=== PATIENT | male | born 1955 | race Two or more races ===

== ENCOUNTER 2024-08-03 02:42 | Inpatient (IN) | payer OTHER ==
[~2024-08-03] VITALS: Ht 182.9 cm; Wt 127.3 kg
[2024-08-03] VITALS (13 sets, daily range): BP systolic 132–149; BP diastolic 69–78; PULSE 60–104; RESP 17–23; TEMP 97.6–98.4; O2SAT 89–97
[2024-08-03] MEDS: IPRATROPIUM BROM 0.5 MG/2.5ML INH SOL NEB ONE ×2 (03:33→07:44)
[2024-08-03] MEDS: ALBUTEROL SULF 2.5 MG/0.5ML(0.5%) NEB SOLN NEB ONE ×2 (03:33→07:44)
--- NOTE | 2024-08-03 04:41 | DVH ---
CHEST RADIOGRAPH Indication: SOB Technique: Frontal and lateral view of the chest was obtained Comparison: None IMPRESSION: 1. Prominent cardiomediastinal silhouette. No focal airspace opacity, effusion, or pneumothorax.
[2024-08-03] MEDS: methylPREDNISolone SOD SUCC 125 MG/2 ML VL IM ONE (05:14)
[2024-08-03] MEDS: DexAMETHasone SOD PHOS 10MG/1ML VIAL INJ IM ONE (05:31)
--- NOTE | 2024-08-03 05:50 | ED.PDOC ---
History of Present Illness HPI Comments 68 y/o M, with a Hx of asthma, HTN, and obesity, presents with c/o shortness of breath and nonproductive cough for the past, today. Patient endorses on onset of excessive coughing bouts for the past week, with additional onset of progressively worsening difficulty breathing within the past 3x days. Patient c omments on no relief or improvement with asthma in haler use. He informs on no additional relevant or relevant Hx along with any recent sick contact, travel, injuries, or substance use/exposure. Patient denies having any chest pain, dyspnea, nausea, vomiting, fever, chills, or other associated symptoms or modifiers at this time. Chief Complaint: Asthma Time Seen by MD: 05:25 Reviewed Notes: Nurses Notes, Medications, Allergies Allergies: Coded Allergies: No Known Drug Allergy (Verified Allergy, Unknown, 08/03/24) Information Source: Patient Mode of Arrival: Ambulatory Severity: Moderate Timing: Days Duration: Since onset Prehospital treatment: Breathing Tx Past Medical History PAST MEDICAL HISTORY: Asthma, HTN Past Medical History (Other): obesity Surgical History: Denies all surgeries Family History Family History: Unknown Social History Smoker: Non-Smoker Alcohol: Denies ETOH Use Drugs: Denies Drug Use Lives In: Home Constitutional: denies: chills, diaphoresis, fatigue, fever, malaise, sweats, weakness, others EENTM: denies: blurred vision, double vision, ear bleeding, ear discharge, ear drainage, ear pain, ear ringing, eye pain, eye redness, hearing loss, mouth pain, mouth swelling, nasal discharge, nose bleeding, nose congestion, nose pain, photophobia, tearing, throat pain, throat swelling, voice changes, others Respiratory: reports: cough, shortness of breath; denies: hemoptysis, orthopnea, SOB at rest, SOB with excertion, stridor, wheezing, others Cardiovascular: denies: chest pain, dizzy spells, diaphoresis, Dyspnea on exertion, edema, irregular heart beat, left arm pain, lightheadedness, palpitations, PND, syncope, others Gastrointestinal: denies: abdomen distended, abdominal pain, blood streaked bowels, constipated, diarrhea, dysphagia, difficulty swallowing, hematemesis, melena, nausea, poor appetite, poor fluid intake, rectal bleeding, rectal pain, vomiting, others Genitourinary: denies: burning, dysuria, flank pain, frequency, hematuria, incontinence, penile discharge, penile sore, pain, testicle pain, testicle swelling, urgency, others Neurological: denies: dizziness, fainting, headache, left sided numbness, left sided weakness, numbness, paresthesia, pre-existing deficit, right sided numbness, right sided weakness, seizure, speech problems, tingling, tremors, weakness, others Musculoskeletal: denies: back pain, gout, joint pain, joint swelling, muscle pa in, muscle stiffness, neck pain, others Integumetry: denies: bruises, change in color, change in hair/nails, dryness, laceration, lesions, lumps, rash, wounds, others Allergic/Immunocompromised: denies: Difficulty Healing, Frequent Infections, Hives, Itching, others Hematologic/Lymphatic: denies: anemia, blood clots, easy bleeding, easy bruising, swollen glands, others Endocrine: denies: excessive hunger, excessive sweating, excessive thirst, excessive urination, flushing, intolerance to cold, intolerance to heat, unexplained weight gain, unexplained weight loss, others Psychiatric: denies: anxiety, bipolar disorder, depression, hopeless, panic disorder, schizophrenia, sleepless, suicidal, others All Other Systems: Reviewed and Negative Physical Exam General Appearance: No Apparent Distress, Obese HEENT: Normal ENT Inspection, Pharynx Normal, TMs Normal Neck: Full Range of Motion, Non-Tender, Normal, Normal Inspection Respiratory: Chest Non-Tender, Decreased Breath Sounds, No Accessory Muscle Use Cardiovascular: No Edema, No JVD, No Murmur, No Gallop, Normal Peripheral Pulses, Regular Rate/Rhythm Breast Exam: Deferred Gastrointestinal: No Organomegaly, Non Tender, No Pulsatile Mass, Normal Bowel Sounds, Soft Genitalia: Deferred Pelvic: Deferred Rectal: Deferred Extremities: No calf tenderness, Normal capillary refill, Normal inspection, Normal range of motion, Non-tender, No pedal edema Musculoskeletal : Apperance: Normal Neurologic: Alert, area operations director II-XII nml as Tested, No Motor Deficits, Normal Affect, Normal Mood, No Sensory Deficits Cerebellar Function: Normal Reflexes: Normal Skin: Dry, Normal Color, Warm Lymphatic: No Adenopathy Was a procedure done? Was a procedure done?: No Differential Dx Considerations may include: asthma exacerbation, Covid19, bronchitis, PNA, URI, viral syndrome X-Ray, Labs, Meds, VS Vital Signs Date Time Temp Pulse Resp B/P (MAP) Pulse Ox O2 Delivery O2 Flow Rate FiO2 08/03/24 05:30 Room Air* 0 21 08/03/24 04:45 98.7 94 18 127/75 (92) 90 98.7 08/03/24 03:35 18 91 Room Air* 0 21 08/03/24 02:52 20 93 Room Air* 0 21 08/03/24 02:52 99.4 84 20 129/69 (89) 93 Current Medications Medications (Trade) Dose Ordered Sig/Norah Route Start Time Stop Time Status Last Admin Albuterol (Ventolin Medneb) 2.5 mg ONCE ONCE NEB 08/03/24 03:30 08/03/24 03:31 DC 08/03/24 03:33 Ipratropium [place] (Atrovent Medneb) 0.5 mg ONCE ONCE NEB 08/03/24 03:30 08/03/24 03:31 DC 08/03/24 03:33 Methylprednisolone Sodium Succinate (Solu Medrol) 125 mg ONCE ONCE IM 08/03/24 04:30 08/03/24 04:31 DC 08/03/24 05:14 Dexamethasone Sodium Phosphate (Decadron Injection) 8 mg ONCE ONCE IM 08/03/24 05:30 08/03/24 05:31 DC 08/03/24 05:31 [place] [id number] Ph: [phone] DIAGNOSTIC IMAGING Diagnostic Imaging Report : [id number] Signed PATIENT: OLIVIA DENNIS ACCT: [id number] UNIT: [id number] : 1955 LOC: ER ROOM / BED: / AGE / SEX: 68 / M ADM STATUS: REG ER SERVICE [id number] ORDERING PHYSICIAN: NINI NIETO PROCEDURE(s): CXR2 - CHEST TWO VIEWS ROUTINE REASON: SOB ORDER NUMBER(s): [id number], ACCESSION NUMBER(s): [id number] CHEST RADIOGRAPH Indication: SOB Technique: Frontal and lateral view of the chest was obtained Comparison: None IMPRESSION: 1. Prominent cardiomediastinal silhouette. No focal airspace opacity, effusion, or pneumothorax. ATED BY: TONE MCGHEE MD DICTATED DATE/TIME: 08/03/24439 SIGNED BY: TONE MCGHEE MD SIGNED DATE/TIME: 08/03/24439 CC: The patient received Decadron and DuoNeb treatment. He was discharged with a Z-Manoj for asthma and upper respiratory tract infection. Time of 1ST Reevaluation: 05:30 Reevaluation 1ST: Unchanged Patient Education/Counseling: Diagnosis, Treatment Family Education/Counseling: No Family Present Departure 1 Departure Time of Disposition: 05:54 Impression: Primary Impression: Acute asthma Additional Impression: Upper respiratory tract infection Qualified Codes: J06.9 - Acute upper respiratory infection, unspecified Disposition: HOME / SELF CARE / HOMELESS Condition: Other Additional Instructions: Reassessed patient, vital signs stable. Denies any new symptoms. Patient is able to tolerate PO and ambulate/be mobile at their baseline without concern. Risks and benefits of all medications given or prescribed, if any, discussed. All lab work, imaging and diagnostic studies were reviewed by me. The patient was counseled extensively on my clinical impression, diagnosis, expected course of the disease, and plan, including their follow-up care. Will discharge patient. Patient instructed to follow up with Primary Care Physician within 24-48 hours. Strict return precautions given for further exacerbation of symptoms or for new symptoms. The patient was given the opportunity to ask questions and all questio ns were answered by myself and the nursing/tech staff. Patient is in agreement with the care plan. The patient verbally expressed understanding of the discharge instructions, including the reasons to return to the Emergency Department. e-Prescriptions Azithromycin (ZITHROMAX TABLET) 250 Mg Tb 250 MG PO DAILY, #5 TAB Prov: CELSO BRYANT MD 08/03/24 Discharged With: Self Critical Care Note Critical Care Time?: No Stability Stability form required: No Heart Score Heart Score: Heart Score Response (Comments) Value History N/A 0 EKG N/A 0 Age N/A 0 Risk Factors N/A 0 Troponin N/A 0 Total 0 I personally scribed for CELSO BRYANT MD ([email or web address]) on 08/03/24 at 05:50. Electronically submitted by Lonnie Lei ([email or web address]). CELSO BRYANT MD Aug 03, 2024 05:50
[2024-08-03] MEDS ORDERED: AZIT-185 PO (05:56)
[2024-08-03 07:40] LABS: Basophils # (auto) 0 10 ^3/uL (0-0.2); Basophils % (auto) 0.2 % (0.0-2.0); Eosinophils # (auto) 0.1 10 ^3/uL (0-0.8); Eosinophils % (auto) 0.7 % (0.0-7.0); Hematocrit 43.4 % (41.0-53.0); Hemoglobin 14.5 g/dL (13.5-17.5); Lymphocytes # (auto) 0.8 10 ^3/uL (0.4-5.4); Mean Corpuscular Hemoglobin 27.9 pg (28.0-32.0); Mean Corpuscular Hgb Conc. 33.4 g/dL (32.0-36.0); Mean Corpuscular Volume 83.5 fL (80.0-100.0); Monocytes # (auto) 0.5 10 ^3/uL (0-1.3); Monocytes % (auto) 4.8 % (0.0-12.0); Neutrophils # (auto) 9.8 10 ^3/uL (1.6-8.6); Neutrophils % (auto) 87.3 % (37.0-80.0); Platelet Count (auto) 147 10^3/uL (140-450); White Blood Cell 11.2 10^3/uL (4.4-10.8)
[2024-08-03 07:43] LABS: Anion Gap 9 (5-15); Carbon Dioxide 25 mmol/L (20-31); Chloride 105 mmol/L (98-107); Potassium 4.6 mmol/L (3.5-5.1); Sodium 139 mmol/L (136-145)
[2024-08-03 07:44] LABS: Calcium 9.9 mg/dL (8.7-10.4)
[2024-08-03 07:49] LABS: BUN/Creatinine Ratio 15.5 (10.0-20.0)
[2024-08-03 07:57] LABS: Blood Urea Nitrogen 30 mg/dL (9-23); Glucose 129 mg/dL (74-106)
[2024-08-03] MEDS: MAGNESIUM SULFATE 1GM/100ML 100 ML IV ONE (08:16)
[2024-08-03] MEDS ORDERED: MORPHINE SULFATE INJ 2 MG/ml SYRG IV PRN (09:15)
[2024-08-03] MEDS ORDERED: ACETAMINOPHEN 325 MG TAB PO PRN (09:15)
[2024-08-03] MEDS ORDERED: PROMETHAZINE-DM 5 ML ORAL SYRUP PO PRN (09:15)
[2024-08-03] MEDS ORDERED: ONDANSETRON HCL 4 MG/2 ML VIAL IV PRN (09:15)
[2024-08-03] MEDS ORDERED: NITROGLYCERIN 0.4 MG SL TAB SL PRN (09:15)
[2024-08-03 09:32] LABS: COVID19 ANTIGEN SOFIA FIA NEGATIVE (NEGATIVE)
[2024-08-03] MEDS: ENOXAPARIN SOD 40 MG/0.4 ML SYRINGE SC SCH (10:33)
[2024-08-03 10:34] LABS: Rapid Influenza A Negative (Negative); Rapid Influenza B Negative (Negative)
[2024-08-03] MEDS: FAMOTIDINE 20 MG TAB PO SCH (10:34)
[2024-08-03] MEDS: cefTRIAXone 1GM/50ML D5W 50 ML IV ONE (10:34)
[2024-08-03] MEDS: BUDESONIDE (INHALATION) 0.5 MG/2 ML NEB NEB SCH (10:43)
[2024-08-03] MEDS: ALBUTEROL SULF 2.5 MG/0.5ML(0.5%) NEB SOLN NEB SCH (10:43)
[2024-08-03] MEDS: IPRATROPIUM BROM 0.5 MG/2.5ML INH SOL NEB SCH (10:43)
[2024-08-03 10:44] LABS: Urine Bacteria None Seen /hpf (None Seen)
[2024-08-03 11:06] LABS: Urine Blood Negative /uL (Negative); Urine Clarity Clear (Clear); Urine Color Light-Yellow (Yellow); Urine Protein, UAD TRACE (Negative); Urine Specific Gravity 1.025 (1.001-1.035); Urine Urobilinogen Normal (Negative); Urine WBC 1 /hpf (0 - 3)
[2024-08-03 11:14] LABS: Amphetamine Screen, Urine Neg (NEGATIVE); Barbiturate Scree,Urine Neg (NEGATIVE); Benzodiazephine Screen, Urine Neg (NEGATIVE); Cannabinoid Screen, Urine Neg (NEGATIVE); Cocaine Screen, Urine Neg (NEGATIVE); Opiate Scree,Urine Neg (NEGATIVE); Phencyclidine Screen, Urine Neg (NEGATIVE)
[2024-08-03] MEDS ORDERED: ATEN25TA PO (13:29)
[2024-08-03] MEDS ORDERED: LISI40TA16 PO (13:29)
[2024-08-03] MEDS ORDERED: SIMV20TA20 PO (13:29)
--- NOTE | 2024-08-03 13:54 | DVHSR ---
APPROVED REPORT EXAM: Two-dimensional and M-mode echocardiogram with Doppler and color Doppler. Blood Pressure: 135/69 mmHg INDICATION SOB RISK FACTORS Height: 6' 2", Weight: 280 DIMENSIONS LVDd4.3 (3.8-5.7cm)LA (2D)3.7 (1.9-4.0cm)Aortic Root3.6 (2.0-3.7cm) LVDs3.1 (2.5-4.0cm)LA (MM) (1.9-4.0cm)Aortic Cusp Exc1.9 (1.5-2.0cm) EF (%) 55.0 (55-70%)Rt. Atrium3.6 (1.9-4.0cm)Asc. Aorta cm IVSd1.5 (0.7-1.1cm)RV (D) (1.8-2.4cm) PWd1.4 (0.7-1.1cm) Mitral Valve MitralMitral Stenosis E wave0.80m/sMV Mean GR.mmHg A wave1.20m/sMV Peak GR.mmHg E/A ratio0.72D MVAcm2 Aortic Valve Aortic ValveAortic Stenosis V11.40m/Otilia Mean GR.7mmHg V21.70m/Otilia Peak GR.12mmHg LVOT Diameter2.5 (1.8-2.4cm)Doppler AVA4.04cm2 Conclusion Normal left ventricular size and dimension. Normal left ventricular systolic function estimated ejec tion fraction 55%. There is a grade1 diastolic dysfunction. Normal right ventricular size and dimension. Normal right ventricular systolic function. Normal biatrial size and dimension. Normal aortic valve structure and function. Normal mitral valve structure and function. Normal tricuspid valve structure and function. The pulmonary valve is grossly normal. No pericardial effusion.
[2024-08-03] MEDS: methylPREDNISolone SOD SUCC 40 MG/ML VL IV SCH (14:21)
--- NOTE | 2024-08-03 16:15 | DVHHP2 ---
History of Present Illness Reason for Visit: Shortness of breaths History of Present Illness 68 y/o M, with a Hx of asthma, HTN, and obesity, presents with c/o shortness of breath and nonproductive cough for the past, today. Patient endorses on onset of excessive coughing bouts for the past week, with additional onset of prog ressively worsening difficulty breathing within the past 3x days. Patient comments on no relief or improvement with asthma in haler use. He informs on no additional relevant or relevant Hx along with any recent sick contact, travel, injuries, or substance use/exposure. Patient denies having any chest pain, dyspnea, nausea, vomiting, fever, chills, or other associated symptoms or mo difiers at this time. Past Medical History Asthma, hypercholesterolemia, hypertension Past Surgical History None significant noted Family History: Hypertension Smoke: No ALCOHOL: occassional Lives: with Family Review of Systems Review of Systems No fevers chills or sweats. No recent travel. Other review of systems reviewed normal. Allergies: Coded Allergies: No Known Drug Allergy (Verified Allergy, Unknown, 08/03/24) Medications Current Medications Medications Dose Ordered Sig/Norah Route Start Time Stop Time Status Last Admin Dose Admin Nitroglycerin 0.4 mg Q5MINP PRN SL 08/03/24 09:15 Morphine Sulfate 2 mg Q30M PRN IV 08/03/24 09:15 Ipratropium [place] 0.5 mg Q4HWA [facility] 08/03/24 10:00 08/03/24 10:43 0.5 MG Albuterol 2.5 mg Q4HWA [facility] 08/03/24 10:00 08/03/24 10:43 2.5 MG Budesonide 0.5 mg BID [facility] 08/03/24 10:00 08/03/24 10:43 0.5 MG Methylprednisolone Sodium Succinate 40 mg Q6HR IV 08/03/24 12:00 08/03/24 14:21 40 MG Famotidine 20 mg Q12HR PO 08/03/24 10:00 08/03/24 10:34 20 MG Ceftriaxone Sodium 50 ml @ 100 mls/hr DAILY@09 IV 08/04/24 09:00 Enoxaparin Sodium 40 mg DAILY SC 08/03/24 10:00 08/03/24 10:33 40 MG Ondansetron HCl 4 mg Q4HPRN PRN IV 08/03/24 09:15 Acetaminophen 650 mg Q4HP PRN PO 08/03/24 09:15 Promethazine HCl/ Dextromethorphan 5 ml Q6HP PRN PO 08/03/24 09:15 Exam Vital Signs Vital Signs Date Time Temp Pulse Resp B/P (MAP) Pulse Ox O2 Delivery O2 Flow Rate FiO2 08/03/24 13:16 88 18 95 Nasal Cannula* 2 08/03/24 13:00 98.4 149/75 (99) 98.4 Exam Alert awake oriented x3. No acute cardiopulmonary distress at present. HEENT neck supple no JVD pupils equal round react to light. Heart regular rate and rhythm S1 plus S2 without murmurs. Lungs fair air movement with the end expiratory wheezing noted. Chest tube will expansion. No rales. Abdomen is obese. Soft. Nontender positive bowel sounds. Extremities no edema. Positive pulses. Labs/Xrays Labs Test 08/03/24 10:00 08/03/24 09:30 08/03/24 08:10 08/03/24 07:10 Range/Units Urine Color Light-yellow Yellow Urine Clarity Clear Clear Urine pH 5.0 5.0-9.0 Urine Specific [place] 1.025 1.001-1.035 Urine Protein Trace H Negative Urine Ketones Trace Negative Urine Blood Negative Negative /uL Urine Nitrite Negative Negative Urine Bilirubin Negative Negative Urine Urobilinogen Normal Negative mg/dL Urine Leukocyte Esterase Negative Negative /uL Urine RBC 1 0 - 3 /hpf Urine WBC 1 0 - 3 /hpf Urine Squamous Epithelial Cells Few <5 /hpf Urine Bacteria None seen None Seen /hpf Urine Glucose Normal Normal mg/dL Urine Opiates Screen Neg NEGATIVE Urine Fentanyl Screen Neg NEGATIVE Urine Barbiturates Screen Neg NEGATIVE Urine Phencyclidine Screen Neg NEGATIVE Urine Amphetamines Screen Neg NEGATIVE Urine Benzodiazepines Screen Neg NEGATIVE Urine Cocaine Screen Neg NEGATIVE Urine Cannabinoids Screen Neg NEGATIVE Influenza Type A Antigen Negative Negative Influenza Type B Antigen Negative Negative SARS-CoV-2 Antigen (Rapid) Negative NEGATIVE White Blood Count 11.2 H 4.4-10.8 10^3/uL Red Blood Count 5.20 4.5-5.90 10^6/uL Hemoglobin 14.5 13.5-17.5 g/dL Hematocrit 43.4 41.0-53.0 % Mean Corpuscular Volume 83.5 80.0-100.0 fL Mean Corpuscular Hemoglobin 27.9 L 28.0-32.0 pg Mean Corpuscular Hemoglobin Concent 33.4 32.0-36.0 g/dL Red Cell Distribution Width 14.0 11.8-14.3 % Platelet Count 147 140-450 10^3/uL Mean Platelet Volume 8.4 6.9-10.8 fL Neutrophils (%) (Auto) 87.3 H 37.0-80.0 % Lymphocytes (%) (Auto) 7.0 L 10.0-50.0 % Monocytes (%) (Auto) 4.8 0.0-12.0 % Eosinophils (%) (Auto) 0.7 0.0-7.0 % Basophils (%) (Auto) 0.2 0.0-2.0 % Neutrophils # (Auto) 9.8 H 1.6-8.6 10 ^3/uL Lymphocytes # (Auto) 0.8 0.4-5.4 10 ^3/uL Monocytes # (Auto) 0.5 0-1.3 10 ^3/uL Eosinophils # (Auto) 0.1 0-0.8 10 ^3/uL Basophils # (Auto) 0 0-0.2 10 ^3/uL Nucleated Red Blood Cells 0.0 % D-Dimer, Quantitative 0.43 0.0-0.49 mg/L FEU Sodium Level 139 136-145 mmol/L Potassium Level 4.6 3.5-5.1 mmol/L Chloride Level 105 98-107 mmol/L Carbon Dioxide Level 25 20-31 mmol/L Anion Gap 9 5-15 Blood Urea Nitrogen 30 H 9-23 mg/dL Creatinine 1.94 H 0.700-1.30 mg/dL Glomerular Filtration Rate Calc 37 >90 mL/min BUN/Creatinine Ratio 15.5 10.0-20.0 Serum Glucose 129 H 74-106 mg/dL Calcium Level 9.9 8.7-10.4 mg/dL Assessment/Plan Assessment/Plan We will admit him overnight for brief hospitalization given the patient's symptoms did not improve with the treatment in the ER. We will start him on IV steroids, empiric antibiotics, breathing nebulizer treatments and inhaled steroids. Pulmonary consultation. Resume his home medications. We will check his influenza and COVID test. Otherwise continue rest of supportive care and treatment and further clinical management per clinical course and recommendations from the hr shared services consultant. Discussed with the patient regarding care plan. Plan discussed with: Patient, Other My Orders Orders - SARA PERDUE MD Procedure Category Date Status Time Admit ADMIT 08/03/24 Transmitted 09:03 Cardiac DIET 08/03/24 Transmitted Diet-2gna,Lofat,Lochol Breakfast Echo 2d Mode Cardiac US 08/03/24 Resulted DOP 09:03 Pt Request For Service PT 08/03/24 Logged 09:03 Nitroglycerin PHA 08/03/24 In Process Sublingual (Ntrostat 09:15 Morphine Sulfate PHA 08/03/24 In Process Injection 09:15 Stat Ekg For Chest ASTRID 08/03/24 In Process Pain 09:03 Notify Of Changes ASTRID 08/03/24 In Process From Base 09:03 Resource Development Manager For ASTRID 08/03/24 In Process 24 Hours 09:03 Emergency Dysrhythmia ASTRID 08/03/24 In Process Protocol 09:03 Rhythm Strips Once ASTRID 08/03/24 In Process Every Shift 09:03 Oxygen By Nasal RT 08/03/24 Transmitted Cannula 09:03 Ipratropium Medneb PHA 08/03/24 In Process (Atrovent Medneb) 10:00 Albuterol Medneb PHA 08/03/24 In Process (Ventolin Medneb) 10:00 Budesonide PHA 08/03/24 In Process (Inhalation) 10:00 Methylprednisolone PHA 08/03/24 In Process Sod Succ (Solu Medrol 12:00 Famotidine Tablet PHA 08/03/24 In Process (Pepcid Tablet) 10:00 Ceftriaxone 1gm/50ml PHA 08/04/24 In Process D5w (Rocephin) 09:00 Enoxaparin Sodium PHA 08/03/24 In Process (Lovenox) 10:00 Ondansetron Hcl PHA 08/03/24 In Process (Zofran) 09:15 Acetaminophen Tablet PHA 08/03/24 In Process (Tylenol Tablet) 09:15 Promethazine-Dm PHA 08/03/24 In Process (Phenergan-Dm) 09:15 *Consult CONS 08/03/24 Transmitted / 09:08 Problem List: (1) Acute asthma (2) Upper respiratory tract infection SARA PERDUE MD Aug 03, 2024 16:15
--- NOTE | 2024-08-03 16:40 | DVHINCON2 ---
Date of service: Aug 03, [address] Zuniga Reason for Consultation Dyspnea History of Present Illness 68-year-old man history of asthma, hypertension, obesity who presented with shortness of breath and a nonproductive cough. The symptoms have been going on for the last week. He endorses an onset of coughing bouts for the last week. He denies any recent sick contacts. No recent travel history. No substance abuse. He denies any chest pain or palpitations. No nausea, vomiting, diarrhea or constipation. No fever or chills. Pulmonary consultation is called for evaluation of cough and shortness of breath. Review of systems: 14 point review of systems is negative unless otherwise noted above. Past medical history: Asthma, hypertension, obesity Past surgical history: None mentioned in prior surgeries. Medications: Reviewed Allergies: No known drug allergies. Family history: No family history of premature CAD. No family history of lung disease. Social history: Nonsmoker. No alcohol or illicit drug use. Lives at home. Family History: Patient reports no known family medical history. Allergies: Coded Allergies: No Known Drug Allergy (Verified Allergy, Unknown, 08/03/24) Home Meds Active Scripts Azithromycin (ZITHROMAX TABLET) 250 Mg Tb, 250 MG PO DAILY, #5 TAB Prov:CELSO BRYANT MD 08/03/24 Reported Medications Simvastatin (Simvastatin) 20 Mg Tab, 1 TAB PO 08/03/24 Lisinopril (Lisinopril) 40 Mg Tab, 1 TAB PO DAILY 08/03/24 Atenolol (Atenolol) 25 Mg Tab, 1 TAB PO DAILY 08/03/24 Current Medications Current Medications Medications (Trade) Dose Ordered Sig/Norah Route PRN Reason Start Time Stop Time Status Last Admin Nitroglycerin (Ntrostat Sublingual) 0.4 mg Q5MINP PRN SL FOR CHEST PAIN 08/03/24 09:15 Morphine Sulfate 2 mg Q30M PRN IV FOR CHEST PAIN 08/03/24 09:15 Ipratropium [place] (Atrovent Medneb) 0.5 mg Q4HWA [facility] 08/03/24 10:00 08/03/24 10:43 Albuterol (Ventolin Medneb) 2.5 mg Q4HWA [facility] 08/03/24 10:00 08/03/24 10:43 Budesonide (Pulmicort) 0.5 mg BID [facility] 08/03/24 10:00 08/03/24 10:43 Methylprednisolone Sodium Succinate (Solu Medrol) 40 mg Q6HR IV 08/03/24 12:00 08/03/24 14:21 Famotidine (Pepcid Tablet) 20 mg Q12HR PO 08/03/24 10:00 08/03/24 10:34 Ceftriaxone Sodium 50 ml @ 100 mls/hr DAILY@09 IV 08/04/24 09:00 Enoxaparin Sodium (Lovenox) 40 mg DAILY SC 08/03/24 10:00 08/03/24 10:33 Ondansetron HCl (Zofran) 4 mg Q4HPRN PRN IV NAUSEA / VOMITING 08/03/24 09:15 Acetaminophen (Tylenol Tablet) 650 mg Q4HP PRN PO MILD PAIN (1-3 PAIN SCALE) 08/03/24 09:15 Promethazine HCl/ Dextromethorphan (Phenergan-Dm) 5 ml Q6HP PRN PO FOR COUGH 08/03/24 09:15 Atenolol (Tenormin Tablet) 25 mg DAILY PO 08/04/24 10:00 Lisinopril (Zestril Tablet) 10 mg BID PO 08/03/24 22:00 Atorvastatin Calcium (Lipitor) 20 mg HS PO 08/03/24 22:00 Vital Signs Vital Signs Date Time Temp Pulse Resp B/P (MAP) Pulse Ox O2 Delivery O2 Flow Rate FiO2 08/03/24 13:16 88 18 95 Nasal Cannula* 2 28 08/03/24 13:00 98.4 149/75 (99) 98.4 Physical Exam Gen.: Patient lying in bed in no apparent distress. On supplemental oxygen. Head: Normocephalic, atraumatic Eyes: EOMI/PERRLA. Ears: Normal hearing. Normal anatomy. Neck/trachea: Trachea midline, supple. Nose: Normal external anatomy. Mouth: Moist mucous membranes. Chest: Decreased air entry bilaterally. No wheezing or rhonchi. Cardio vascular: Positive S1, positive S2. Regular rate and rhythm. Abdomen: Positive bowel sounds in all 4 quadrants. Soft, non-tender, non- distended. : Deferred. Rectal: Deferred Skin: Warm, dry. Extremities: 2+ radial pulses bilaterally. No lower extremity edema. Neuro: Awake, alert, oriented x3. No gross motor or sensory deficits. Cranial nerves II through XII intact. Gait not assessed. Labs/Diagnostic Data Labs Test 08/03/24 10:00 08/03/24 09:30 08/03/24 08:10 08/03/24 07:10 Range/Units Urine Color Light-yellow Yellow Urine Clarity Clear Clear Urine pH 5.0 5.0-9.0 Urine Specific [place] 1.025 1.001-1.035 Urine Protein Trace H Negative Urine Ketones Trace Negative Urine Blood Negative Negative /uL Urine Nitrite Negative Negative Urine Bilirubin Negative Negative Urine Urobilinogen Normal Negative mg/dL Urine Leukocyte Esterase Negative Negative /uL Urine RBC 1 0 - 3 /hpf Urine WBC 1 0 - 3 /hpf Urine Squamous Epithelial Cells Few <5 /hpf Urine Bacteria None seen None Seen /hpf Urine Glucose Normal Normal mg/dL Urine Opiates Screen Neg NEGATIVE Urine Fentanyl Screen Neg NEGATIVE Urine Barbiturates Screen Neg NEGATIVE Urine Phencyclidine Screen Neg NEGATIVE Urine Amphetamines Screen Neg NEGATIVE Urine Benzodiazepines Screen Neg NEGATIVE Urine Cocaine Screen Neg NEGATIVE Urine Cannabinoids Screen Neg NEGATIVE Influenza Type A Antigen Negative Negative Influenza Type B Antigen Negative Negative SARS-CoV-2 Antigen (Rapid) Negative NEGATIVE White Blood Count 11.2 H 4.4-10.8 10^3/uL Red Blood Count 5.20 4.5-5.90 10^6/uL Hemoglobin 14.5 13.5-17.5 g/dL Hematocrit 43.4 41.0-53.0 % Mean Corpuscular Volume 83.5 80.0-100.0 fL Mean Corpuscular Hemoglobin 27.9 L 28.0-32.0 pg Mean Corpuscular Hemoglobin Concent 33.4 32.0-36.0 g/dL Red Cell Distribution Width 14.0 11.8-14.3 % Platelet Count 147 140-450 10^3/uL Mean Platelet Volume 8.4 6.9-10.8 fL Neutrophils (%) (Auto) 87.3 H 37.0-80.0 % Lymphocytes (%) (Auto) 7.0 L 10.0-50.0 % Monocytes (%) (Auto) 4.8 0.0-12.0 % Eosinophils (%) (Auto) 0.7 0.0-7.0 % Basophils (%) (Auto) 0.2 0.0-2.0 % Neutrophils # (Auto) 9.8 H 1.6-8.6 10 ^3/uL Lymphocytes # (Auto) 0.8 0.4-5.4 10 ^3/uL Monocytes # (Auto) 0.5 0-1.3 10 ^3/uL Eosinophils # (Auto) 0.1 0-0.8 10 ^3/uL Basophils # (Auto) 0 0-0.2 10 ^3/uL Nucleated Red Blood Cells 0.0 % D-Dimer, Quantitative 0.43 0.0-0.49 mg/L FEU Sodium Level 139 136-145 mmol/L Potassium Level 4.6 3.5-5.1 mmol/L Chloride Level 105 98-107 mmol/L Carbon Dioxide Level 25 20-31 mmol/L Anion Gap 9 5-15 Blood Urea Nitrogen 30 H 9-23 mg/dL Creatinine 1.94 H 0.700-1.30 mg/dL Glomerular Filtration Rate Calc 37 >90 mL/min BUN/Creatinine Ratio 15.5 10.0-20.0 Serum Glucose 129 H 74-106 mg/dL Calcium Level 9.9 8.7-10.4 mg/dL Assessment Impression: Acute exacerbation of asthma Upper respiratory tract infection Obesity with a BMI of 30.5 Atelectasis Plan: Chest x-ray imaging report reviewed. No acute opacities. No pleural effusion or pneumothorax. Supplemental oxygen On 2 liters/minute via nasal cannula, improved from 3 liters/minute this morning. Keep O2 saturation above 92%. Continue bronchodilators Continue Pulmicort twice daily Continue antibiotics Incentive spirometry for atelectasis. Diet and lifestyle modifications for weight reduction given obesity. Obesity complicates all care. DVT prophylaxis Prognosis: Poor given multiple comorbidities. Rest of plan per hospitalist and other consultants. Thank you Dr. Zuniga for allowing me to participate in this patient's care. Further recommendations will depend on patient's clinical course. Please do not hesitate to contact me if you have any questions or concerns. This medical document was created using an electronic medical record system with [employer] system. Although this document has been carefully reviewed, there may still be some phonetic and typographical errors. These areas are purely typographical due to imperfections of the software programs, and do not reflect any compromise in the patient's medical care. Plan discussed with: Patient, Other (RN, ) SHEILA HANNA MD Aug 03, 2024 16:40
[2024-08-03] MEDS: ATENOLOL 25 MG TAB PO ONE (17:54)
[2024-08-03] MEDS: LISINOPRIL 20 MG TAB PO SCH (21:11)
[2024-08-03] MEDS: ATORVASTATIN 20 MG TAB PO SCH (21:12)
[2024-08-04] VITALS (13 sets, daily range): BP systolic 131–179; BP diastolic 64–85; PULSE 55–79; RESP 16–20; TEMP 97.6–98.8; O2SAT 91–96
[2024-08-04] MEDS: cefTRIAXone 1GM/50ML D5W 50 ML IV SCH (09:37)
[2024-08-04] MEDS: ATENOLOL 25 MG TAB PO SCH (09:39)
[2024-08-04] MEDS ORDERED: PRED20TA2 PO (16:31)
[2024-08-04] MEDS ORDERED: FLUT500M2 INH (16:31)
[2024-08-04] MEDS ORDERED: ALBU108A5 IN (16:31)
[2024-08-04] MEDS ORDERED: AMOX500T86 PO (16:31)
--- NOTE | 2024-08-04 16:32 | DVHDS2 ---
Discharge Summary Date of Admission Aug 03, 2024 at 09:03 Date of Discharge: Aug 04, 2024 Labs/Diagnostic Data: Laboratory Results Test 08/03/24 10:00 08/03/24 09:30 08/03/24 08:10 08/03/24 07:10 Urine Color Light-yellow (Yellow) Urine Clarity Clear (Clear) Urine pH 5.0 (5.0-9.0) Urine Specific [place] 1.025 (1.001-1.035) Urine Protein Trace (Negative) Urine Ketones Trace (Negative) Urine Blood Negative /uL (Negative) Urine Nitrite Negative (Negative) Urine Bilirubin Negative (Negative) Urine Urobilinogen Normal mg/dL (Negative) Urine Leukocyte Esterase Negative /uL (Negative) Urine RBC 1 /hpf (0 - 3) Urine WBC 1 /hpf (0 - 3) Urine Squamous Epithelial Cells Few /hpf (<5) Urine Bacteria None seen /hpf (None Seen) Urine Glucose Normal mg/dL (Normal) Urine Opiates Screen Neg (NEGATIVE) Urine Fentanyl Screen Neg (NEGATIVE) Urine Barbiturates Screen Neg (NEGATIVE) Urine Phencyclidine Screen Neg (NEGATIVE) Urine Amphetamines Screen Neg (NEGATIVE) Urine Benzodiazepines Screen Neg (NEGATIVE) Urine Cocaine Screen Neg (NEGATIVE) Urine Cannabinoids Screen Neg (NEGATIVE) Influenza Type A Antigen Negative (Negative) Influenza Type B Antigen Negative (Negative) SARS-CoV-2 Antigen (Rapid) Negative (NEGATIVE) White Blood Count 11.2 10^3/uL (4.4-10.8) Red Blood Count 5.20 10^6/uL (4.5-5.90) Hemoglobin 14.5 g/dL (13.5-17.5) Hematocrit 43.4 % (41.0-53.0) Mean Corpuscular Volume 83.5 fL (80.0-100.0) Mean Corpuscular Hemoglobin 27.9 pg (28.0-32.0) Mean Corpuscular Hemoglobin Concent 33.4 g/dL (32.0-36.0) Red Cell Distribution Width 14.0 % (11.8-14.3) Platelet Count 147 10^3/uL (140-450) Mean Platelet Volume 8.4 fL (6.9-10.8) Neutrophils (%) (Auto) 87.3 % (37.0-80.0) Lymphocytes (%) (Auto) 7.0 % (10.0-50.0) Monocytes (%) (Auto) 4.8 % (0.0-12.0) Eosinophils (%) (Auto) 0.7 % (0.0-7.0) Basophils (%) (Auto) 0.2 % (0.0-2.0) Neutrophils # (Auto) 9.8 10 ^3/uL (1.6-8.6) Lymphocytes # (Auto) 0.8 10 ^3/uL (0.4-5.4) Monocytes # (Auto) 0.5 10 ^3/uL (0-1.3) Eosinophils # (Auto) 0.1 10 ^3/uL (0-0.8) Basophils # (Auto) 0 10 ^3/uL (0-0.2) Nucleated Red Blood Cells 0.0 % D-Dimer, Quantitative 0.43 mg/L FEU (0.0-0.49) Sodium Level 139 mmol/L (136-145) Potassium Level 4.6 mmol/L (3.5-5.1) Chloride Level 105 mmol/L (98-107) Carbon Dioxide Level 25 mmol/L (20-31) Anion Gap 9 (5-15) Blood Urea Nitrogen 30 mg/dL (9-23) Creatinine 1.94 mg/dL (0.700-1.30) Glomerular Filtration Rate Calc 37 mL/min (>90) BUN/Creatinine Ratio 15.5 (10.0-20.0) Serum Glucose 129 mg/dL (74-106) Calcium Level 9.9 mg/dL (8.7-10.4) Other Laboratory Tests 08/03/24 07:10 Final Diagnosis/Problems List asthma exac, htn Discharge Disposition: Home Discharge Instruct/Medications Diet: Consistent carbohydrate, Cardiac 2g Na,low cholest Activity: No Restrictions, As Tolerated Follow Up/Referral: dr.Gomez nag[facility] doctor 2 weeks for asthma management Medications: as prescribed and home meds per dc list New Medications: Albuterol Sulfate (Albuterol Sulfate Hfa) 108 Mcg/Act Aer 108 MCG IN Q4HP PRN, #1 AER Amoxicillin & Pot Clavulanate (Augmentin) 500 Mg Tab 1 TAB PO BID, #8 TAB Fluticasone-Salmeterol (Advair Diskus 500/50) 1 Puff Ih 1 PUFF INH BID, #1 INHALER Prednisone (Prednisone) 20 Mg Tab 20 MG PO BID, #10 MG Continued Medications: Atenolol (Atenolol) 25 Mg Tab 1 TAB PO DAILY Lisinopril (Lisinopril) 40 Mg Tab 1 TAB PO DAILY Simvastatin (Simvastatin) 20 Mg Tab 1 TAB PO HS Discontinued Medications: Azithromycin (Zithromax Tablet) 250 Mg Tb 250 MG PO DAILY, #5 TAB Discharge Statement: "Patient was advised to return to the ER or call 911 if any headaches, dizziness, shortness of breath, chest pain, abdominal pain, bleeding, fevers, or worsening of medical condition. Patient was counseled about treatment plan, medications, possible side effects, patientverbalized understanding. All questions were answered to the best of my ability. This discharge took greater then 30 minutes in planning, reviewing documentation, counseling the patient, and discussing with other team members." ASSESSMENT ASSESSMENT Assessment asthma exac, htn SARA PERDUE MD Aug 04, 2024 16:32
--- NOTE | 2024-08-04 23:05 | DVHPN2 ---
Progress Note - Dictate Date Seen: Aug 04, 2024 Medical Necessity Reason Pt with a Central, PICC or Fol: No Subjective Patient seen and examined at bedside. Remains on supplemental oxygen Overnight events reviewed. vital signs Vital Sign Date Time Temp Pulse Resp B/P (MAP) Pulse Ox O2 Delivery O2 Flow Rate FiO2 08/04/24 18:16 64 08/04/24 17:14 97.6 17 147/76 (99) 97.6 08/04/24 14:14 95 08/04/24 14:04 Room Air* 0 21 Total Intake and Output 08/03/24 08/03/24 08/04/24 15:00 23:00 07:00 Intake Total 150 ml 450 ml 500 ml Balance 150 ml 450 ml 500 ml objective Gen.: Patient lying in bed in no apparent distress. On supplemental oxygen. Head: Normocephalic, atraumatic. Eyes: EOMI/PERRLA. Ears: Normal hearing. Normal anatomy. Neck/trachea: Trachea midline, supple. Nose: Normal external anatomy. Mouth: Moist mucous membranes. Chest: Decreased air entry bilaterally. No wheezing or rhonchi. Cardiovascular: Positive S1, positive S2. Regular rate and rhythm. Abdomen: Positive bowel sounds in all 4 quadrants. Soft, non-tender, non- distended. : Deferred. Rectal: Deferred. Skin: Warm, dry. Intact. Extremities: 2+ radial pulses bilaterally. No lower extremity edema. Neuro: Awake, alert, oriented x3. No gross motor or sensory deficits. Cranial nerves II through XII intact. Gait not assessed. laboratory and microbiology Laboratory Tests 08/03/24 07:10 Test 08/03/24 07:10 Range/Units Serum Glucose 129 H 74-106 mg/dL Assessment/Plan Impression: Acute exacerbation of asthma Upper respiratory tract infection Obesity with a BMI of 30.5 Atelectasis Events: Remains on supplemental oxygen, 2 LPM NC Taper O2 as tolerated Continue bronchodilators Continue steroids Continue antibiotics Incentive spirometry Patient is stable for discharge from the pulmonary standpoint. Follow up in 1-2 weeks in Pulmonary Clinic. Labs and imaging reviewed. Rest of plan as noted below. Plan: Chest x-ray imaging report reviewed. No acute opacities. No pleural effusion or pneumothorax. Supplemental oxygen Keep O2 saturation above 92%. Continue bronchodilators Continue Pulmicort twice daily Continue antibiotics Incentive spirometry for atelectasis. Diet and lifestyle modifications for weight reduction given obesity. Obesity complicates all care. DVT prophylaxis Prognosis: Poor given multiple comorbidities. Rest of plan per hospitalist and other consultants. Thank you Dr. Zuniga for allowing me to participate in this patient's care. Further recommendations will depend on patient's clinical course. Please do not hesitate to contact me if you have any questions or concerns. This medical document was created using an electronic medical record system with [employer] dictation system. Although this document has been carefully reviewed, there may still be some phonetic and typographical errors. These areas are purely typographical due to imperfections of the software programs, and do not reflect any compromise in the patient's medical care. Plan discussed with: Patient, Other (RN) SHEILA HANNA MD Aug 04, 2024 23:05
[2024-08-05] MEDS ORDERED: FAMOTIDINE 20 MG TAB PO SCH (10:00)
== END 2024-08-04 19:00 | disposition home or self-care (01) | DRG 189 ==
LOC: ER 02:42 → OVERFLOW 09:03 → WEST WING 12:34
PROVIDERS: ADMIT Hospitalist; ATTEND Hospitalist
DX: J96.01 Acute respiratory failure with hypoxia (principal); J45.901 Unspecified asthma with (acute) exacerbation; J98.11 Atelectasis; J06.9 Acute upper respiratory infection, unspecified; E66.9 Obesity, unspecified; E78.00 Pure hypercholesterolemia, unspecified; Z20.822 Contact with and (suspected) exposure to COVID-19; I10 Essential (primary) hypertension; Z68.30 Body mass index [BMI] 30.0-30.9, adult; Z82.49 Family history of ischemic heart disease and other diseases of the circulatory system; Z68.38 Body mass index [BMI] 38.0-38.9, adult
CPT/HCPCS: 96365; 96367; 96375; 97163; G0378

== ENCOUNTER 2024-08-15 11:24 | Emergency (ER) | payer OTHER ==
[~2024-08-15] VITALS: Ht 188 cm; Wt 123.5 kg
[~2024-08-15 11:24] MED LIST: ALBU108A5 IN; AMOX500T86 PO; ATEN25TA PO; FLUT500M2 INH; LISI40TA16 PO; PRED20TA2 PO; SIMV20TA20 PO
--- NOTE | 2024-08-15 11:42 | ED.PDOC ---
History of Present Illness HPI Comments 68 year old male presents to the ED with chief complaint of groin pain. Patient reports that he has been experiencing left sided groin pain since last . Patient relays that his pain is worse when walking, but better when sitting. Patient relays that he was admitted last week for an infection and is currently on antibiotics since discharge. Patient states he did not take his BP medication Atenolol this morning. Patient denies any abdominal pain, N/V, fever, chills, back pain, or dizziness. Time Seen by MD: 11:38 Reviewed Notes: Nurses Notes, Medications, Allergies Allergies: Coded Allergies: No Known Drug Allergy (Verified Allergy, Unknown, 08/03/24) Home Meds Active Scripts Albuterol Sulfate (Albuterol Sulfate Hfa) 108 Mcg/Act Aer, 108 MCG IN Q4HP PRN, #1 AER Prov:SARA PERDUE MD 08/04/24 Amoxicillin & Pot Clavulanate (Augmentin) 500 Mg Tab, 1 TAB PO BID, #8 TAB Prov:SARA PERDUE MD 08/04/24 Prednisone (Prednisone) 20 Mg Tab, 20 MG PO BID, #10 MG Prov:SARA PERDUE MD 08/04/24 Fluticasone-Salmeterol (Advair Diskus 500/50) 1 Puff Ih, 1 PUFF INH BID, #1 INHALER Prov:SARA PERDUE MD 08/04/24 Reported Medications Simvastatin (Simvastatin) 20 Mg Tab, 1 TAB PO HS 08/03/24 Lisinopril (Lisinopril) 40 Mg Tab, 1 TAB PO DAILY 08/03/24 Atenolol (Atenolol) 25 Mg Tab, 1 TAB PO DAILY 08/03/24 Information Source: Patient Mode of Arrival: Ambulatory Severity: Moderate Timing: Days Duration: Since onset Prehospital treatment: None Past Medical History PAST MEDICAL HISTORY: Asthma, HTN Surgical History: Denies all surgeries Family History Family History: Unknown Social History Smoker: Non-Smoker Alcohol: Denies ETOH Use Drugs: Denies Drug Use Lives In: Home Constitutional: denies: chills, diaphoresis, fatigue, fever, malaise, sweats, weakness, others EENTM: denies: blurred vision, double vision, ear bleeding, ear discharge, ear drainage, ear pain, ear ringing, eye pain, eye redness, hearing loss, mouth pain, mouth swelling, nasal discharge, nose bleeding, nose congestion, nose pain, photophobia, tearing, throat pain, throat swelling, voice changes, others Respiratory: denies: cough, hemoptysis, orthopnea, SOB at rest, shortness of breath, SOB with excertion, stridor, wheezing, others Cardiovascular: denies: chest pain, dizzy spells, diaphoresis, Dyspnea on exertion, edema, irregular heart beat, left arm pain, lightheadedness, palpitations, PND, syncope, others Gastrointestinal: denies: abdomen distended, abdominal pain, blood streaked bowels, constipated, diarrhea, dysphagia, difficulty swallowing, hematemesis, melena, nausea, poor appetite, poor fluid intake, rectal bleeding, rectal pain, vomiting, others Genitourinary: reports: others (Left groin pain); denies: burning, dysuria, flank pain, frequency, hematuria, incontinence, penile discharge, penile sore, pain, testicle pain, testicle swelling, urgency Neurological: denies: dizziness, fainting, headache, left sided numbness, left sided weakness, numbness, paresthesia, pre-existing deficit, right sided numbness, right sided weakness, seizure, speech problems, tingling, tremors, weakness, others Musculoskeletal: denies: back pain, gout, joint pain, joint swelling, muscle pain, muscle stiffness, neck pain, others Integumetry: denies: bruises, change in color, change in hair/nails, dryness, laceration, lesions, lumps, rash, wounds, others Allergic/Immunocompromised: denies: Difficulty Healing, Frequent Infections, Hives, Itching, others Hematologic/Lymphatic: denies: anemia, blood clots, easy bleeding, easy bruising, swollen glands, others Endocrine: denies: excessive hunger, excessive sweating, excessive thirst, excessive urination, flushing, intolerance to cold, intolerance to heat, unexplained weight gain, unexplained weight loss, others Psychiatric: denies: anxiety, bipolar disorder, depression, hopeless, panic disorder, schizophrenia, sleepless, suicidal, others All Other Systems: Reviewed and Negative Physical Exam General Appearance: No Apparent Distress, Normal HEENT: Normal ENT Inspection, PERRL/EOMI Neck: Full Range of Motion, Non-Tender, Normal, Normal Inspection Respiratory: Chest Non-Tender, Lungs Clear, No Accessory Muscle Use, No Respiratory Distress, Normal Breath Sounds Cardiovascular: No Edema, No JVD, No Murmur, No Gallop, Normal Peripheral Pulses, Regular Rate/Rhythm Breast Exam: Deferred Gastrointestinal: No Organomegaly, Non Tender, No Pulsatile Mass, Normal Bowel Sounds, Soft, Other (No hernia, mild diffuse lower abdominal tenderness) Genitalia: Deferred Pelvic: Deferred Rectal: Deferred Extremities: No calf tenderness, Normal capillary refill, Normal inspection, Normal range of motion, Non-tender, No pedal edema Musculoskeletal : Apperance: Normal Neurologic: Alert, 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 Was a procedure done?: No Differential Dx Considerations may include: hip strain, inguinal hernia, colitis, renal colic X-Ray, Labs, Meds, VS Vital Signs Date Time Temp Pulse Resp B/P (MAP) Pulse Ox O2 Delivery O2 Flow Rate FiO2 08/15/24 11:47 98.0 61 18 145/99 (114) 96 Lab Test 08/15/24 12:20 Range/Units White Blood Count 9.0 4.4-10.8 10^3/uL Red Blood Count 5.43 4.5-5.90 10^6/uL Hemoglobin 15.2 13.5-17.5 g/dL Hematocrit 45.6 41.0-53.0 % Mean Corpuscular Volume 84.0 80.0-100.0 fL Mean Corpuscular Hemoglobin 28.0 28.0-32.0 pg Mean Corpuscular Hemoglobin Concent 33.4 32.0-36.0 g/dL Red Cell Distribution Width 14.2 11.8-14.3 % Platelet Count 177 140-450 10^3/uL Mean Platelet Volume 7.9 6.9-10.8 fL Neutrophils (%) (Auto) 67.9 37.0-80.0 % Lymphocytes (%) (Auto) 21.6 10.0-50.0 % Monocytes (%) (Auto) 8.1 0.0-12.0 % Eosinophils (%) (Auto) 1.7 0.0-7.0 % Basophils (%) (Auto) 0.7 0.0-2.0 % Neutrophils # (Auto) 6.1 1.6-8.6 10 ^3/uL Lymphocytes # (Auto) 2.0 0.4-5.4 10 ^3/uL Monocytes # (Auto) 0.7 0-1.3 10 ^3/uL Eosinophils # (Auto) 0.2 0-0.8 10 ^3/uL Basophils # (Auto) 0.1 0-0.2 10 ^3/uL Nucleated Red Blood Cells 0.1 % Sodium Level 138 136-145 mmol/L Potassium Level 4.4 3.5-5.1 mmol/L Chloride Level 106 98-107 mmol/L Carbon Dioxide Level 27 20-31 mmol/L Anion Gap 5 5-15 Blood Urea Nitrogen 14 9-23 mg/dL Creatinine 1.38 H 0.700-1.30 mg/dL Glomerular Filtration Rate Calc 55 >90 mL/min BUN/Creatinine Ratio 10.1 10.0-20.0 Serum Glucose 111 H 74-106 mg/dL Calcium Level 10.1 8.7-10.4 mg/dL CT Abd/Pel: Findings: Evaluation of solid organs is limited due to lack of intravenous contrast use. Lung Bases: No acute or significant lung base finding. Normal heart size. No pleural or pericardial effusion. Liver: The liver is normal in size. No focal lesions. Gallbladder and biliary Tree: Unremarkable Spleen: Unremarkable Pancreas: The pancreas is grossly normal in appearance. Adrenal Glands: Unremarkable Kidneys: Punctate left upper pole renal calculus. No hydronephrosis. Left renal cyst. Right kidney appears unremarkable. Bladder: Grossly unremarkable for degree of distention. Bowel: The stomach is grossly normal in appearance. Small bowel and colon are normal in caliber and distribution. Normal appendix is visualized in the right lower quadrant without findings of appendicitis. Ascites: Absent Lymphadenopathy: No mesenteric, retroperitoneal or periportal lymphadenopathy. Abdominal wall and Mesentery: Unremarkable. Vasculature: The visualized abdominal aorta is normal in size and caliber. Evaluation of abdominal and pelvic vessels is limited due to lack of intravenous contrast. Pelvic Organs: Unremarkable Musculoskeletal: No aggressive focal bony lesions, acute fractures or dislocation. IMPRESSION: 1. No acute abdominal or pelvic findings. Punctate nonobstructive left upper p ole renal calculus. Left renal cyst. X-Ray, Labs, Meds, VS Comment - I reviewed the following notes from patient's past medical encounters: Admission for COPD exacerbation on 08/03/24 - The following tests were ordered, and results were reviewed by me: CT Abd/Pel, CBC, BMP, and UA. - I reviewed and agreed with the following test results read by other provider: CT Abd/Pel. - I discussed treatments and results with medical personnel. Images Reviewed?: Images reviewed and evaluated by me Time of 1ST Reevaluation: 12:38 Reevaluation 1ST: Unchanged Patient Education/Counseling: Diagnosis, Treatment, Prognosis, Need For Follow Up Family Education/Counseling: No Family Present Additional Information pt was admitted for copd exacerbation. he was on abx, so colitis was a possible differential. the ct is unremarkable. labs are unremarkable. his cr is improved from the prior. pt likely a muscular origin of the left hip pain with certain movements. he has no point tenderness and no injuries, so a fracture is unlikely Departure 1 Departure Time of Disposition: 13:43 Impression: Primary Impression: Strain of hip Qualified Codes: S76.012A - Strain of muscle, fascia and tendon of left hip, initial encounter Additional Impressions: Diarrhea Qualified Codes: R19.7 - Diarrhea, unspecified Renal insufficiency Disposition: HOME / SELF CARE / HOMELESS Condition: Good Discharged With: Self Critical Care Note Critical Care Time?: No Stability Stability form required: No Heart Score Heart Score: Heart Score Response (Comments) Value History N/A 0 EKG N/A 0 Age N/A 0 Risk Factors N/A 0 Troponin N/A 0 Total 0 I personally scribed for JOHNNY LUCIA MD ([email or web address]) on 08/15/24 at 11:42. Electronically submitted by Joaquin Fulton ([email or web address]). I personally scribed for JOHNNY LUCIA MD ([employer]) on 08/15/24 at 11:43. Electronically submitted by Joaquin Fulton ([email or web address]). I personally scribed for JOHNNY LUCIA MD ([employer]) on 08/15/24 at 11:46. Electronically submitted by Joaquin Fulton ([email or web address]). I personally scribed for JOHNNY LUCIA MD ([employer]) on 08/15/24 at 12:50. Electronically submitted by Joaquin Fulton ([email or web address]). JOHNNY LUCIA MD Aug 15, 2024 11:42
--- NOTE | 2024-08-15 12:19 | DVH ---
Exam: CT CT AB PEL WO CON-NO ORAL OR IV History: left llq pain, diarrhea, recent abx use Comparison Study: None Technique: Multidetector spiral CT of the abdomen and pelvis was performed from lung bases to pubic symphysis. Imaging was performed without IV contrast. Axial, coronal and sagittal multiplanar reform ats were obtained from the axial data set by the technologist. Radiation dose : Abdomen/Pelvis: CTDIvol 27 mGy, DLP 1467.52 mGy*cm. Findings: Evaluation of solid organs is limited due to lack of intravenous contrast use. Lung Bases: No acute or significant lung base finding. Normal heart size. No pleural or pericardial effusion. Liver: The liver is normal in size. No focal lesions. Gallbladder and biliary Tree: Unremarkable Spleen: Unremarkable Pancreas: The pancreas is grossly normal in appearance. Adrenal Glands: Unremarkable Kidneys: Punctate left upper pole renal calculus. No hydronephrosis. Left renal cyst. Right kidney a ppears unremarkable. Bladder: Grossly unremarkable for degree of distention. Bowel: The stomach is grossly normal in appearance. Small bowel and colon are normal in caliber and d istribution. Normal appendix is visualized in the right lower quadrant without findings of appendici tis. Ascites: Absent Lymphadenopathy: No mesenteric, retroperitoneal or periportal lymphadenopathy. Abdominal wall and Mesentery: Unremarkable. Vasculature: The visualized abdominal aorta is normal in size and caliber. Evaluation of abdominal a nd pelvic vessels is limited due to lack of intravenous contrast. Pelvic Organs: Unremarkable Musculoskeletal: No aggressive focal bony lesions, acute fractures or dislocation. IMPRESSION: 1. No acute abdominal or pelvic findings. Punctate nonobstructive left upper pole renal calculus. Le ft renal cyst. Radiation optimization: All CT scans at this facility use at least one of these dose optimization richard hniques: Automated exposure control mA and/or kV adjustment per patient size (includes targeted exams where dose is matched to clinical indication) or iterative reconstruction. HS:Y
[2024-08-15 12:43] LABS: Basophils # (auto) 0.1 10 ^3/uL (0-0.2); Basophils % (auto) 0.7 % (0.0-2.0); Eosinophils # (auto) 0.2 10 ^3/uL (0-0.8); Eosinophils % (auto) 1.7 % (0.0-7.0); Hematocrit 45.6 % (41.0-53.0); Hemoglobin 15.2 g/dL (13.5-17.5); Lymphocytes % (auto) 21.6 % (10.0-50.0); Mean Corpuscular Hgb Conc. 33.4 g/dL (32.0-36.0); Monocytes # (auto) 0.7 10 ^3/uL (0-1.3); Monocytes % (auto) 8.1 % (0.0-12.0); Neutrophils # (auto) 6.1 10 ^3/uL (1.6-8.6); Neutrophils % (auto) 67.9 % (37.0-80.0); Nucleated Red Blood Cells % 0.1 %; Platelet Count (auto) 177 10^3/uL (140-450); Red Blood Cells 5.43 10^6/uL (4.5-5.90); Red Cell Distribution Width 14.2 % (11.8-14.3)
[2024-08-15 12:45] LABS: Chloride 106 mmol/L (98-107); Potassium 4.4 mmol/L (3.5-5.1); Sodium 138 mmol/L (136-145)
[2024-08-15 12:46] LABS: Anion Gap 5 (5-15); Calcium 10.1 mg/dL (8.7-10.4); Carbon Dioxide 27 mmol/L (20-31)
[2024-08-15 12:51] LABS: BUN/Creatinine Ratio 10.1 (10.0-20.0); Blood Urea Nitrogen 14 mg/dL (9-23)
[2024-08-15 12:55] LABS: Glucose 111 mg/dL (74-106)
[2024-08-15] MEDS ORDERED: LOPE2CAP16 PO (13:45)
[2024-08-15] MEDS ORDERED: HYDR-4902 PO (13:45)
[2024-08-15 14:05] LABS: Urine Bacteria None Seen /hpf (None Seen)
[2024-08-15 14:10] VITALS: BP 166/92; TEMP 97.7
[2024-08-15 14:15] LABS: Urine Blood Negative /uL (Negative); Urine Clarity Clear (Clear); Urine Color Yellow (Yellow); Urine Mucus FEW (None Seen); Urine Protein, UAD 2+ (Negative); Urine Specific Gravity 1.038 (1.001-1.035); Urine Urobilinogen Normal (Negative); Urine WBC 2 /hpf (0 - 3)
[2024-08-15 14:17] VITALS: PULSE 92; RESP 16; O2SAT 93
== END 2024-08-15 14:19 | disposition home or self-care (01) ==
LOC: ER 11:24
DX: S76.012A Strain of muscle, fascia and tendon of left hip, initial encounter (principal); R19.7 Diarrhea, unspecified; N28.9 Disorder of kidney and ureter, unspecified; I10 Essential (primary) hypertension; J45.909 Unspecified asthma, uncomplicated; Z79.51 Long term (current) use of inhaled steroids; Z79.52 Long term (current) use of systemic steroids; Z79.899 Other long term (current) drug therapy; X58.XXXA Exposure to other specified factors, initial encounter; Y93.89 Activity, other specified; Y92.89 Other specified places as the place of occurrence of the external cause; Y99.8 Other external cause status
CPT/HCPCS: 36415; 74176; 80048; 81001; 85025